=== PATIENT | male | born 1965 | race Caucasian/White ===

== ENCOUNTER 2024-10-03 20:25 | Emergency (ER) | payer BC, SELFPAY ==
[2024-10-03] VITALS (8 sets, daily range): BP systolic 142–183; BP diastolic 88–143; BMI 33.7
[2024-10-03 21:24] LABS: % Eosinophils 0.7 % (0-6); % Immature Granulocytes 0.4 % (0-0.5); % Lymphocytes 20.4 % (20.5-51.1); % Monocytes 6.9 % (1.7-9.3); % Neutrophils 70.6 % (42.2-75.2); Absolute Basophils 0.1 10^3/uL (0-0.2); Absolute Eosinophils 0.1 10^3/uL (0-0.7); Absolute Lymphocytes 1.7 10^3/uL (1.2-3.4); Absolute Monocytes 0.6 10^3/uL (0.1-0.6); Absolute Neutrophils 5.9 10^3/uL (1.4-6.5); Hematocrit 46.4 % (39.0-52.0); Hemoglobin 16.3 g/dL (13.0-18.0); Mean Corp Hgb Conc. 35.1 g/dL (33.0-37.0); Mean Corpuscular Hgb 28.6 pg (27.0-31.0); Mean Corpuscular Volume 81.5 fL (80.0-94.0); Mean Platelet Volume 8.8 fL (7.4-10.4); Nucleated Red Blood Cells % 0 % (-); Platelet Count 284 10^3/uL (130-400); Red Blood Cell Count 5.69 10^6/uL (4.70-6.10); Red Cell Dist. Width 13.6 % (11.5-14.5); White Blood Cell Count 8.4 10^3/uL (4.8-10.8)
[2024-10-03 21:45] LABS: ALT (SGPT) 23 U/L (0-50); AST (SGOT) 24 U/L (17-59); Albumin 4.3 g/dl (3.5-5.0); Alkaline Phosphatase 94 U/L (38-126); Blood Urea Nitrogen 17 mg/dl (9-20); Calcium 9.4 mg/dl (8.4-10.2); Carbon Dioxide 23 mmol/L (22-30); Chloride 103 mmol/L (98-107); Estimated Creatinine Clearance 94 ml/min; Glucose 130 mg/dl (70-99); Sodium 137 mmol/L (135-145); Total Protein 6.5 g/dl (6.3-8.2); eGFR > 60.00
[2024-10-03 22:19] LABS: Troponin I < 0.012 ng/ml
[2024-10-03 22:51] LABS: Urine Albumin 2+ (Neg - Trace); Urine Bilirubin Negative (Negative); Urine Character Clear (Clear); Urine Color Yellow; Urine Glucose Negative (Negative); Urine Ketone Negative (Negative); Urine Leukocyte Negative (Negative); Urine Nitrite Negative (Negative); Urine Occult Blood 2+ (Negative); Urine Urobilinogen Negative (Neg - 1+)
--- NOTE | 2024-10-03 22:54 | ED.GENMED ---
History of Present Illness
General
Chief Complaint: Cardiac Symptoms
Source: patient and spouse
Exam Limitations: none
Time Seen by Provider: 10/03/24 21:57
History of Present Illness
History of Present Illness:
Pleasant 58-year-old male presents to the emergency department with elevated blood pressure. For the last hour and a half prior to arrival he has been feeling lightheaded. He does have a history of a CVA. He took his blood pressure at home and it
was significantly elevated. Patient denies any chest pain. He reports shortness of breath.
Review of Systems
Review of Systems
Allergies reviewed?: Yes
Other source history: family
All Other Systems: ROS reviewed and negative except as documented in HPI and ROS
Constitutional: Reports no symptoms
EENT: Reports no symptoms
Respiratory: Reports no symptoms
Cardiac: Reports palpitations; Denies chest pain, diaphoresis or syncope
ABD/GI: Reports no symptoms
: Reports no symptoms
Musculoskeletal: Reports no symptoms
Skin: Reports no symptoms
Neurological: Reports no symptoms
Endocrine: Reports no symptoms
Hematologic/Lymphatic: Reports no symptoms
Psychiatric: Reports no symptoms
Phy Exam
General Physical Exam
General Presentation: well appearing and no apparent distress
General Skin: warm and dry
General Habitus: normal
General Mental: alert
General Hydration: appears well hydrated
ENT Exam
ENT Exam: EOMI, pharynx normal, neck supple and normocephalic
Eye Exam
Eye Exam: PERRL, cornea clear and conjunctiva normal
Cardiovascular Exam
Cardiovascular Exam: regular rate/rhythm, no edema, no murmur and normal peripheral pulses
Pulmonary Exam
Pulmonary Exam: lungs clear, no respiratory distress, no rales, no crackles, no rhonchi, no stridor, no wheezing and no cough
Gastrointestinal Exam
Gastrointestinal Exam: normal bowel sounds, non tender, soft, no organomegaly, no pulsatile mass and non distended
Neurological Exam
Neurological Exam: alert, oriented x3, no motor deficits and speech normal
Musculoskeletal Exam
Musculoskeletal Exam: full ROM and no edema
Skin Exam
Skin Exam: normal color, warm/dry, no rash and no petechia
Psychiatric Exam
Psychiatric Exam: normal mood/affect
Course
Orders/Labs/Results
Orders:
Orders
10/03/24 20:27
Electrocardiogram (*1) Urgent
Reason for Study: Shortness of Breath
EKG- Treatment ONCE
10/03/24 21:17
CMP [Comprehensive Metabolic Panel] Urgent
Complete Blood Count/With Diff Urgent
Troponin I Urgent
10/03/24 22:12
Electrocardiogram (*1) Urgent
Reason for Study: Hypertension, Benign
EKG- Treatment ONCE
10/03/24 22:41
TSH Reflex To Free T4 Urgent
Urinalysis Reflex To Culture Urgent
Date Specimen was Collected: 10/03/24
Time Specimen was Collected: 22:34
Urine Microscopic Reflex Cult Urgent
10/03/24 23:35
Troponin I Urgent
Abnormal Lab Results
10/03/24 10/03/24
21:17 22:41
Lymphocytes % 20.4 L %
(20.5-51.1)
Glucose 130 H mg/dl
(70-99)
Ur Occult Blood Reflex 2+ A
(Negative)
Urine RBC 3-6 A /HPF
(0-2)
Urine Bacteria (Reflex) Few A
(Negative)
Urine Albumin (Reflex) 2+ A
(Neg - Trace)
10/03/24 21:17
10/03/24 21:17
Vital Signs
Initial and Last Documented VS:
Initial Vital Signs
Temp Pulse Resp BP Pulse Ox
98.1 F 116 20 183/143 97
10/03/24 20:36 03/18/25 20:36 10/03/24 20:36 10/03/24 20:36 10/03/24 20:36
Last Documented Vital Signs
Temp Pulse Resp BP Pulse Ox
97.9 F 87 20 150/100 96
10/04/24 00:32 10/04/24 00:32 10/04/24 00:32 10/04/24 00:32 10/04/24 00:33
*Critical Care Note
Total Time (30-74mins, 75-104mins- exclusive of procedures): Not Applicable
ED Attending Note
-
Portions of this chart may have been created with voice recognition software.� Occasional wrong word or��sound alike� substitutions may have occurred due to the inherent limitations of voice recognition software.
Discharge Plan
Departure
Patient Disposition: Home (Routine Discharge)
Date of Disposition: 10/04/24
Time of Disposition: 00:07
Patient with high blood pressure during this ER visit?: Yes
Discharge Problem:
Palpitations, Chest pain
Instructions: Palpitations ED, Chest Pain NON-[facility] Client Associate Follow Up, BLOOD PRESSURE
Referrals:
Ranjit Demarco MD [Family Provider] -
Activity Restrictions/Additional Instructions:
Please follow-up with your video systems engineer as discussed.
It was a pleasure meeting you and taking part in your care. We hope for your continued healing and wellness.
Please read discharge instructions in their entirety. However, they are for general education and may not describe your exact diagnosis at discharge. Information on your ER visit and medical conditions were discussed with you along with appropriate
follow up information...
If indicated, please take your medications as instructed and indicated on discharge paperwork.
Please schedule a follow up appointment as directed. Call to schedule an appointment
Please return to the emergency department with ANY change in, persisting, or worsening of symptoms. If any of your symptoms do not improve, or persist, or become more severe within 6-12 hours, please return to the emergency department for further
care.
Please return to the emergency department if you develop a headache, neck pain/stiffness, fever greater than 100.4F, chest pain, shortness of breath, persistent nausea, vomiting, slurred speech, difficulty walking, numbness/tingling, weakness, signs
of infection or any other symptoms that are worrisome to you.
If you have any questions or concerns please do not hesitate to call the Hospital at or E-mail me directly at [email or web address]
Interventions
Interventions:
*Risk Screen - Suicide Last Done: 10/03/24 20:57
*General Assessment Last Done: 10/03/24 20:56
*Neglect/Abuse Screening Last Done: 10/03/24 20:57
*ED- Fall Risk Assessment Last Done: 10/03/24 20:56
*ED COVID-19 Vaccine History Last Done: 10/03/24 20:55
*Nursing Disposition Last Done: 10/04/24 00:33
ED- Pulmonary Assessment Last Done: 10/03/24 20:57
ED- Cardiac Assessment Last Done: 10/03/24 20:57
Discharge Date and Time
Discharge Date/Time: 10/04/24 00:34
Print Language: SLOVAK
[2024-10-03 22:56] LABS: Urine Bacteria Few (Negative); Urine Squamous Cell 0-2 /LPF (Few); Urine White Cell 0-2 /HPF (0-5)
[2024-10-03 23:44] LABS: TSH Reflex To Free T4 1.22 uIU/ml (0.47-4.68)
[2024-10-04 00:11] LABS: Troponin I < 0.012 ng/ml
[2024-10-04 00:32] VITALS: BP 150/100
== END 2024-10-04 00:34 | disposition home or self-care (01) ==
LOC: EMR 20:25
PROVIDERS: Emergency Medicine; EMERGENCY PHYSICIAN Student in an Organized Health Care Education/Training Program; FAMILY PHYSICIAN Internal Medicine Cardiovascular Disease
DX: R00.2 Palpitations (principal); R07.9 Chest pain, unspecified; R06.02 Shortness of breath; I10 Essential (primary) hypertension; Z86.73 Personal history of transient ischemic attack (TIA), and cerebral infarction without residual deficits
CPT/HCPCS: 99284; 80053; 81003; 81015; 84443; 84484; 85025; 93005

== ENCOUNTER 2024-11-21 14:45 | Emergency (ER) | payer BC, SELFPAY ==
[2024-11-21] VITALS (7 sets, daily range): BP systolic 151–189; BP diastolic 107–132; BMI 32.3
--- NOTE | 2024-11-21 15:09 | ED.GENMED ---
ED Provider Triage
-
Attestation: A medical screening examination has been initiated by a qualified medical provider. Based on the assessment performed at this time, it has been determined that an emergent medical condition may exist and the patient has been informed
that further medical evaluation and possible additional diagnostic testing may be needed.
HPI: 59-year-old male presenting via EMS with near syncope. Symptoms started after working in the garden and bending over for approximate 30 minutes. He reports significant lightheadedness and feeling That he is going to pass out. No chest pain
or shortness of breath. No true dizziness or vertigo symptoms. No headache. Patient does have history of A-fib although states he has not been taking his Eliquis. Also history of CVA.
GENERAL: Alert , in no apparent distress
EYE: No visual abnormalities.
NECK: Trachea midline
ENT: No visible abnormalities.
LUNGS: No acute respiratory distress
NEUROLOGICAL: Alert and oriented
SKIN: Skin intact. No visible changes.
MUSCULOSKELETAL: Moving extremities normally
PSYCH: Normal and appropriate interaction.
Symptoms consistent with likely near syncopal event. Will check labs, troponin, EKG, CT head to rule out cardiac or central etiology. Will give IV fluids.
This is a medical evaluation conducted in person to initiate diagnostic evaluation and provide initial therapeutics. Please see further documentation by the treating clinician.
History of Present Illness
General
Chief Complaint: Dizziness
Time Seen by Provider: 11/21/24 16:49
Course
Orders/Labs/Results
Orders:
Orders
11/21/24 14:52
Electrocardiogram (*1) Urgent
Reason for Study: Vertigo / Dizzy
EKG- Treatment ONCE
11/21/24 15:02
Complete Blood Count/With Diff Urgent
Comprehensive Metabolic Panel Urgent
Troponin I Urgent
11/21/24 15:11
CT Head W/o Iv Contrast Urgent
Comment:
Reason For Exam: dizziness
0.9% Sodium Chloride 1000 ml [Nss] 1,000 ml IV BOLUS
11/21/24 16:23
D-Dimer Urgent
Abnormal Lab Results
11/21/24
15:02
Chloride 108 H mmol/L
(98-107)
Glucose 129 H mg/dl
(70-99)
11/21/24 15:02
11/21/24 15:02
Vital Signs
Initial and Last Documented VS:
Initial Vital Signs
Temp Pulse Resp BP Pulse Ox
98.2 F 116 16 189/132 98
11/21/24 15:02 11/21/24 15:02 11/21/24 15:02 11/21/24 15:02 11/21/24 15:02
Last Documented Vital Signs
Temp Pulse Resp BP Pulse Ox
98.3 F 79 16 151/107 98
11/21/24 16:52 11/21/24 18:15 11/21/24 17:15 11/21/24 18:00 11/21/24 18:15
ED Attending Note
-
Portions of this chart may have been created with voice recognition software.� Occasional wrong word or��sound alike� substitutions may have occurred due to the inherent limitations of voice recognition software.
Discharge Plan
Departure
Patient Disposition: Home (Routine Discharge)
Date of Disposition: 11/21/24
Time of Disposition: 18:22
Patient with high blood pressure during this ER visit?: Yes
Condition: Good
Discharge Problem:
Near syncope
Instructions: Near Fainting (DC), BLOOD PRESSURE
Referrals:
Aileen Gottlieb MD [Non-Admitting Privileges] - Call in 1-3 days for appt
Too Sood MD [Family Provider] - Call in 1-3 days for appt
Tyler Vogt DO [Active] - Call in 1-3 days for appt
Interventions
Interventions:
*Risk Screen - Suicide Last Done: 11/21/24 15:04
*General Assessment Last Done: 11/21/24 16:52
*Neglect/Abuse Screening Last Done: 11/21/24 15:04
*ED- Fall Risk Assessment Last Done: 11/21/24 16:52
*ED COVID-19 Vaccine History Last Done: 11/21/24 16:52
*Nursing Disposition Last Done: 11/21/24 18:33
ED- Neurological Assessment Last Done: 11/21/24 16:58
ED- Cardiac Assessment Last Done: 11/21/24 16:58
Discharge Date and Time
Discharge Date/Time: 11/21/24 18:34
Print Language: [place]ICAR[place]
[2024-11-21 15:28] LABS: % Basophils 0.8 % (0-2); % Eosinophils 1.2 % (0-6); % Immature Granulocytes 0.4 % (0-0.5); % Lymphocytes 25.3 % (20.5-51.1); % Monocytes 7.4 % (1.7-9.3); % Neutrophils 64.9 % (42.2-75.2); Absolute Basophils 0.1 10^3/uL (0-0.2); Absolute Eosinophils 0.1 10^3/uL (0-0.7); Absolute Lymphocytes 1.9 10^3/uL (1.2-3.4); Absolute Monocytes 0.6 10^3/uL (0.1-0.6); Absolute Neutrophils 4.8 10^3/uL (1.4-6.5); Hematocrit 47.8 % (39.0-52.0); Hemoglobin 16.6 g/dL (13.0-18.0); Mean Corp Hgb Conc. 34.7 g/dL (33.0-37.0); Mean Corpuscular Hgb 28.7 pg (27.0-31.0); Mean Corpuscular Volume 82.7 fL (80.0-94.0); Mean Platelet Volume 9.3 fL (7.4-10.4); Nucleated Red Blood Cells % 0 % (-); Platelet Count 324 10^3/uL (130-400); Red Blood Cell Count 5.78 10^6/uL (4.70-6.10); Red Cell Dist. Width 13.9 % (11.5-14.5); White Blood Cell Count 7.4 10^3/uL (4.8-10.8)
[2024-11-21 15:41] LABS: ALT (SGPT) 26 U/L (0-50); AST (SGOT) 25 U/L (17-59); Albumin 4.3 g/dl (3.5-5.0); Alkaline Phosphatase 93 U/L (38-126); Blood Urea Nitrogen 16 mg/dl (9-20); Calcium 9.4 mg/dl (8.4-10.2); Carbon Dioxide 24 mmol/L (22-30); Chloride 108 mmol/L (98-107); Glucose 129 mg/dl (70-99); Potassium 3.9 mmol/L (3.5-5.1); Sodium 141 mmol/L (135-145); Total Bilirubin 1.1 mg/dl (0.2-1.3); Total Protein 6.7 g/dl (6.3-8.2); eGFR > 60.00
[2024-11-21 15:50] LABS: Troponin I < 0.012 ng/ml
[2024-11-21] MEDS: NSS 1000 IV (16:55)
[2024-11-21 17:14] LABS: D-Dimer < 0.27 ug/mlFEU (0.00-0.50)
== END 2024-11-21 18:34 | disposition home or self-care (01) ==
LOC: EMR 14:45
PROVIDERS: Physician Assistant; EMERGENCY PHYSICIAN Emergency Medicine; FAMILY PHYSICIAN Internal Medicine
DX: R55 Syncope and collapse (principal); I48.91 Unspecified atrial fibrillation; Z86.73 Personal history of transient ischemic attack (TIA), and cerebral infarction without residual deficits; Z91.148 Patient's other noncompliance with medication regimen for other reason
CPT/HCPCS: 96360; 96361; 99284; 70450; 80053; 84484; 85025; 85379; 93005